=== PATIENT | male | born 1990 | race Caucasian/White ===

== ENCOUNTER 2017-10-13 13:30 | Emergency (ER) | payer OTHER ==
[2017-10-13 13:38] VITALS: BP 127/54; PULSE 65; O2SAT 97
--- NOTE | 2017-10-13 13:54 | ERPHSYRPT ---
- History of Present Illness Time Seen by Provider: 10/13/17 13:51 Source: patient Exam Limitations: no limitations Patient Subjective Stated Complaint: Head laceration Triage Nursing Assessment: Pt presents to the ED with complaints of head laceration. Pt states he was hit in the head at work by a metal oil drip plascencia. Pt denies loss of consciousness. No distress noted, skin PWD. Bleeding controlled. Physician History: patient accidentally hit head on metal plascencia at work, resulting in scalp laceration to top of his head. Patient without any loss of consciousness, vomiting, dizziness, blurred vision, altered mental status or balance difficulties. Tetanus immunization was less than 5 years ago. 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) Method of Injury: direct blow Loss of Consciousness: no loss of consciousness Associated Symptoms: No vomiting, No headaches Allergies/Adverse Reactions: No Known Drug Allergies Allergy (Verified 10/13/17 13:39) Hx Tetanus, Diphtheria Vaccination/Date Given: Yes Hx Influenza Vaccination/Date Given: Yes Hx Pneumococcal Vaccination/Date Given: No Immunizations Up to Date: Yes - Review of Systems Constitutional: No Symptoms, No Fever, No Chills Eyes: No Symptoms Ears, Nose, & Throat: No Symptoms Respiratory: No Symptoms, No Cough, No Dyspnea Cardiac: No Symptoms, No Chest Pain, No Edema, No Syncope Abdominal/Gastrointestinal: No Symptoms, No Abdominal Pain, No Nausea, No Vomiting, No Diarrhea Genitourinary Symptoms: No Symptoms, No Dysuria Musculoskeletal: No Symptoms, No Back Pain, No Neck Pain Skin: Other (scalp laceration), No Rash Neurological: No Dizziness, No Focal Weakness, No Sensory Changes Psychological: No Symptoms Endocrine: No Symptoms All Other Systems: Reviewed and Negative - Past Medical History Pertinent Past Medical History: No History: Other Other Medical History: KIDNEY STONES - Past Surgical History Past Surgical History: Yes Musculoskeletal: Orthopedic Surgery Other Surgical History: TONSILLS WRIST SURGERY - Social History Smoking Status: Never smoker How long have you smoked: 5 YEARS Exposure to second hand smoke: No Drug Use: none Patient Lives Alone: No - Nursing Vital Signs Nursing Vital Signs: Initial Vital Signs Temperature 98.0 F 10/13/17 13:34 Pulse Rate 65 10/13/17 13:34 Respiratory Rate 16 10/13/17 13:34 Blood Pressure 127/54 10/13/17 13:34 O2 Sat by Pulse Oximetry 97 10/13/17 13:34 Pain Scale Pain Intensity 0 - [place] Coma Score Best Eye Response ([place]): (4) open spontaneously Best Verbal Response ([place]): (5) oriented Best Motor Response ([place]): (6) obeys commands [place] Total: 15 - Physical Exam General Appearance: no apparent distress, alert Head Injury: lacerations (scalp lac to top of head) Eye Exam: bilateral eye: PERRL, EOMI ENT Exam: airway nml Neck Exam: supple, trachea midline, full range of motion, normal alignment, normal inspection Cardiovascular/Respiratory Exam: chest non-tender, normal breath sounds, regular rate/rhythm Gastrointestinal/Abdominal Exam: soft, non tender, no distention Back Exam: normal inspection, No vertebral tenderness Extremity Exam: non-tender, normal range of motion, normal inspection Mental Status Exam: alert, 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 x 3, 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 Exam: normal hearing, normal speech, PERRL Coordination/Gait Exam: normal finger to nose, normal gait, normal cerebellar function Motor/Sensory Exam: no motor deficit, no sensory deficit, CN II-XII intact Skin Exam: normal color, warm, dry, No rash SpO2 Interpretation: normal SpO2: 97 Oxygen Delivery: Room Air Procedures - Laceration/Wound Repair Head Wound Location: head (top of head) Wound Length (cm): 1 Wound's Depth, Shape: superficial Wound Explored: clean Irrigated: Yes Hibiclens Prep: Yes Volume Anesthetic (ccs): 0 Wound Debrided: minimal Wound Repaired With: [place] (3 ryan placed) Layer Closure?: No - Course Nursing assessment & vital signs reviewed: Yes Ordered Tests: Active Orders 24 hr Category Date Time Status Prepare for Sutures STAT Care 10/13/17 13:46 Active Sutures STAT Care 10/13/17 13:48 Active Wound Care STAT Care 10/13/17 13:46 Active - Progress Progress Note: 10/13/17 13:57 Scalp laceration repaired Counseled pt/family regarding: diagnosis - Departure Time of Disposition: 13:58 Departure Disposition: Home Clinical Impression: Scalp laceration Condition: Stable Critical Care Time: No Instructions: Wound Care (DC), Laceration Repair With Ryan (DC) Additional Instructions: keep wound clean and dry for next 24 hours. May take Motrin/Tylenol for pain/swelling Return for worse headache, dizziness, blurred vision, balance difficulties or any problems Forms: Work/School Release Form
== END 2017-10-13 14:10 | disposition home or self-care (01) ==
LOC: ED 13:30
PROC: 0HQ0XZZ Repair Scalp Skin, External Approach (ICD-10-PCS; principal; 2017-10-13)
DX: S01.01XA Laceration without foreign body of scalp, initial encounter (principal); W22.8XXA Striking against or struck by other objects, initial encounter; Y99.0 Civilian activity done for income or pay
CPT/HCPCS: 12001; 99283

== ENCOUNTER 2017-10-23 13:55 | Emergency (ER) | payer OTHER ==
[2017-10-23 14:07] VITALS: PULSE 70; O2SAT 100
--- NOTE | 2017-10-23 14:10 | ERPHSYRPT ---
- History of Present Illness Time Seen by Provider: 10/23/17 14:06 Source: patient Exam Limitations: no limitations Physician History: Patient is here for staple removal. Patient has 3 ryan which were placed in the scalp 10/13/17. Patient is here for removal he denies any complaints. Past medical history is negative. Timing/Duration: other (Ryan in place since 10/13/2017) Severity: mild Modifying Factors: Improves With: nothing Associated Symptoms: denies symptoms Allergies/Adverse Reactions: No Known Drug Allergies Allergy (Verified 10/13/17 13:39) Hx Tetanus, Diphtheria Vaccination/Date Given: Yes Hx Influenza Vaccination/Date Given: Yes Hx Pneumococcal Vaccination/Date Given: No - Review of Systems Constitutional: No Fever, No Chills Eyes: No Symptoms Ears, Nose, & Throat: No Symptoms Respiratory: No Cough, No Dyspnea Cardiac: No Chest Pain, No Edema, No Syncope Abdominal/Gastrointestinal: No Abdominal Pain, No Nausea, No Vomiting, No Diarrhea Genitourinary Symptoms: No Dysuria Musculoskeletal: No Back Pain, No Neck Pain Skin: Other (here for scalp staple removal) Neurological: No Dizziness, No Focal Weakness, No Sensory Changes Psychological: No Symptoms Endocrine: No Symptoms All Other Systems: Reviewed and Negative - Past Medical History Pertinent Past Medical History: No History: Other Other Medical History: KIDNEY STONES - Past Surgical History Past Surgical History: Yes Musculoskeletal: Orthopedic Surgery Other Surgical History: TONSILLS WRIST SURGERY - Social History Smoking Status: Never smoker How long have you smoked: 5 YEARS Exposure to second hand smoke: No Drug Use: none Patient Lives Alone: No - Physical Exam General Appearance: other (Well-developed well-nourished white male, alert, oriented x 3) Eye Exam: PERRL/EOMI, eyes nml inspection Ears, Nose, Throat Exam: normal ENT inspection, TMs normal, pharynx normal, moist mucous membranes Neck Exam: normal inspection, non-tender, supple, full range of motion Respiratory Exam: normal breath sounds, lungs clear, No respiratory distress Cardiovascular Exam: regular rate/rhythm, normal heart sounds, normal peripheral pulses Gastrointestinal/Abdomen Exam: soft, normal bowel sounds, No tenderness, No mass Back Exam: normal inspection, normal range of motion, No CVA tenderness, No vertebral tenderness Extremity Exam: normal inspection, normal range of motion, pelvis stable Neurologic Exam: alert, oriented x 3, cooperative, normal mood/affect, nml cerebellar function, nml station & gait, sensation nml, No motor deficits Skin Exam: other ([address] top of head, no erythema wound healed) Lymphatic Exam: No adenopathy SpO2 Interpretation: normal - Course Nursing assessment & vital signs reviewed: Yes Ordered Tests: Active Orders 24 hr Category Date Time Status Suture Removal STAT Care 10/23/17 14:06 Active - Progress Progress: improved Progress Note: 10/23/17 14:09 27-year-old white male arrives with complaint of here for staple removal patient with laceration to his scalp top of his head which were placed 2017. He has no complaints. Ryan are removed with no problem. - Departure Time of Disposition: 14:10 Departure Disposition: Home Clinical Impression: Removal of ryan Condition: Fair Critical Care Time: No Referrals: DOCTOR,NO FAMILY [Primary Care Provider] - Additional Instructions: follow-up with your family doctor or return if problems.
== END 2017-10-23 14:57 | disposition home or self-care (01) ==
LOC: ED 13:55
DX: Z48.02 Encounter for removal of sutures (principal)
CPT/HCPCS: 99283